=== PATIENT | female | born 1945 | race Caucasian/White ===

== ENCOUNTER 2023-10-01 06:03 | Day surgery (SDC) | payer OTHER ==
[~2023-10-01] VITALS: Ht 157.5 cm; Wt 65.8 kg
[2023-10-01] VITALS (11 sets, daily range): BP systolic 120–155; BP diastolic 55–88; PULSE 56–75; RESP 14–17
[~2023-10-01 06:03] MED LIST: AMLO5TAB5 PO; CELE100C PO; GABA300C PO; PANT40TA54 PO; ROSU10TA22 PO
[2023-10-01] MEDS ORDERED: PROPOFOL 10 MG/ML 20ML VIAL IV ONE (08:08)
[2023-10-01] MEDS ORDERED: LIDOCAINE PF 100MG/5ML (2%) SYRINGE 5ML ONE (08:08)
== END 2023-10-01 09:30 | disposition home or self-care (01) ==
LOC: DAH 06:03 → ENDO 06:03
PROVIDERS: ATTEND Internal Medicine Gastroenterology
DX: R13.10 Dysphagia, unspecified (principal); K44.9 Diaphragmatic hernia without obstruction or gangrene; K29.50 Unspecified chronic gastritis without bleeding; K22.2 Esophageal obstruction; K31.89 Other diseases of stomach and duodenum; Q39.4 Esophageal web; R10.13 Epigastric pain; K59.00 Constipation, unspecified; M19.90 Unspecified osteoarthritis, unspecified site; E78.5 Hyperlipidemia, unspecified; Z79.899 Other long term (current) drug therapy; Z90.49 Acquired absence of other specified parts of digestive tract; Z90.710 Acquired absence of both cervix and uterus; Z90.11 Acquired absence of right breast and nipple
CPT/HCPCS: 43239; 43248; J2001; J2704; A4620; A4215 ×2; A4223; A7002; A4222; A4221; A4663; A4216; J7030; A4606; J3490

== ENCOUNTER → 2023-11-19 | Outpatient (CLI) | payer OTHER | END | disposition home or self-care (01) | LOC: RAH 10:43 | PROVIDERS: ATTEND Nurse Practitioner Adult Health | DX: M47.22 Other spondylosis with radiculopathy, cervical region (principal); M48.02 Spinal stenosis, cervical region | CPT/HCPCS: 72040 ==

== ENCOUNTER → 2023-12-10 | Outpatient (CLI) | payer OTHER | END | disposition home or self-care (01) | LOC: RAH 13:44 | PROVIDERS: ATTEND Nurse Practitioner Adult Health | DX: M50.323 Other cervical disc degeneration at C6-C7 level (principal); M47.9 Spondylosis, unspecified | CPT/HCPCS: 72141 ==

== ENCOUNTER → 2024-09-15 | Outpatient (CLI) | payer OTHER | END | disposition home or self-care (01) | LOC: LAB 09:38 | PROVIDERS: ATTEND Nurse Practitioner Adult Health | DX: S33.39XA Dislocation of other parts of lumbar spine and pelvis, initial encounter (principal); M47.812 Spondylosis without myelopathy or radiculopathy, cervical region; M47.817 Spondylosis without myelopathy or radiculopathy, lumbosacral region; M43.17 Spondylolisthesis, lumbosacral region; M41.86 Other forms of scoliosis, lumbar region; M48.02 Spinal stenosis, cervical region; R53.83 Other fatigue; E03.8 Other specified hypothyroidism; M06.9 Rheumatoid arthritis, unspecified; M25.50 Pain in unspecified joint; N39.0 Urinary tract infection, site not specified; M54.50 Low back pain, unspecified; E11.65 Type 2 diabetes mellitus with hyperglycemia; M53.3 Sacrococcygeal disorders, not elsewhere classified; M54.2 Cervicalgia; X58.XXXA Exposure to other specified factors, initial encounter; Y93.89 Activity, other specified; Y92.89 Other specified places as the place of occurrence of the external cause; Y99.8 Other external cause status | CPT/HCPCS: 36415; 72040; 72100; 72220; 80053; 81001; 83036; 84443; 85025; 87086 ==

== ENCOUNTER → 2024-09-18 | Outpatient (CLI) | payer OTHER | END | disposition home or self-care (01) | LOC: LAB 10:31 | PROVIDERS: ATTEND Nurse Practitioner Adult Health | DX: N39.0 Urinary tract infection, site not specified (principal); M06.9 Rheumatoid arthritis, unspecified | CPT/HCPCS: 36415; 86140; 86431 ==

== ENCOUNTER → 2024-10-01 | Outpatient (CLI) | payer OTHER ==
[2024-09-15 10:22] LABS: BASOPHILS # (AUTO) 0.09 K/uL (0.00-0.20); BASOPHILS % (AUTO) 1.5 % (0.0-5.0); EOSINOPHILS # (AUTO) 0.14 K/uL (0.00-0.70); EOSINOPHILS % (AUTO) 2.4 % (0.0-8.0); HEMATOCRIT 44.9 % (36-48); IMMATURE GRANULOCYTE ABSOLUTE 0.02 K/uL (0-1); LYMPHOCYTES # (AUTO) 1.9 K/uL (1.0-4.8); MEAN CORPUSCULAR HEMOGLOBIN 29.2 pg (27.0-33.0); MEAN CORPUSCULAR HGB CONC 33.2 g/dL (32.0-36.0); MONOCYTES # (AUTO) 0.5 K/uL (0.1-1.0); MONOCYTES % (AUTO) 9.3 % (3.0-13.0); NEUTROPHILS # (AUTO) 3.1 K/uL (1.8-7.7); NEUTROPHILS % (AUTO) 53.5 % (40.0-77.0); PLATELET COUNT (AUTO) 260 K/uL (130-400); RED CELL DISTRIBUTION WIDTH 13.2 % (11.0-15.5); WHITE BLOOD COUNT (AUTO) 5.8 K/uL (4.8-10.8)
[2024-09-15 10:28] LABS: APPEARANCE,URINE CLEAR (CLEAR); BILIRUBIN,URINE NEGATIVE (NEGATIVE); COLOR,URINE COLORLESS (YELLOW); GLUCOSE, URINE (UA) NEGATIVE (NEGATIVE); KETONES,URINE NEGATIVE (NEGATIVE); LEUKOCYTE ESTERASE ,URINE NEGATIVE Leu/uL (NEGATIVE); NITRATE,URINE NEGATIVE (NEGATIVE); OCCULT BLOOD,URINE NEGATIVE (NEGATIVE); PROTEIN,URINE NEGATIVE (NEGATIVE); UROBILINOGEN,URINE 0.2 mg/dL (0.2-1.0)
[2024-09-15 10:31] LABS: HEMOGLOBIN A1C 5.3 % (4.0-6.0)
[2024-09-15 10:43] LABS: RBC,URINE 0-1 /HPF (0-1); SQUAMOUS EPITHELIAL CELL,UR RARE /HPF (0-2)
[2024-09-15 10:44] LABS: ALBUMIN 3.9 g/dL (3.5-5.0); BILIRUBIN,TOTAL 1.1 mg/dL (0.2-1.0); CREATININE 0.8 mg/dL (0.5-1.0); THYROID STIMULATING HORMONE 0.3 uIU/mL (0.36-3.74); TOTAL PROTEIN, SERUM 7.6 g/dL (6.0-8.3)
--- NOTE | 2024-10-01 15:38 | HMCIMG ---
DEXA BONE DENSITY SURVEY REASON: Age-related osteoporosis without current pathological fracture COMPARISON: None TECHNIQUE: DEXA bone densitometry was performed in the lumbar spine and left hip. FINDINGS: Mean bone mass density in the spine is 1.108 g/sq cm, T score 0.6, this is within normal limits. Bone density may be accentuated by some scoliosis and degenerative change. The femoral neck T score is -3.3 corresponding with osteoporosis. IMPRESSION: 1. Osteoporosis indicating a high fracture risk.
== END | disposition home or self-care (01) ==
LOC: RAH 14:08
PROVIDERS: ATTEND Nurse Practitioner Adult Health
DX: M81.0 Age-related osteoporosis without current pathological fracture (principal)
CPT/HCPCS: 36415; 77080; 80053; 81001; 83036; 84443; 85025; 87086

== ENCOUNTER 2025-02-10 05:48 | Day surgery (SDC) | payer OTHER ==
[~2025-02-10] VITALS: Ht 157.5 cm; Wt 62.1 kg
[2025-02-10] VITALS (9 sets, daily range): BP systolic 109–149; BP diastolic 60–79; PULSE 60–70; RESP 14–17; TEMP 97–97.7
[~2025-02-10 05:48] MED LIST changes: +AMLO-257 PO; -AMLO5TAB5 PO; -CELE100C PO; +ESOM40CA66 PO; +LINA145C PO; -PANT40TA54 PO; -ROSU10TA22 PO; +TRAM50TA4 PO
[2025-02-10] MEDS ORDERED: 0.9%NACL 1000ML 1,000 ML IV ONE (05:58)
[2025-02-10] MEDS ORDERED: ROSU10TA72 PO (06:16)
[2025-02-10] MEDS ORDERED: ESOM40CA66 PO (06:16)
[2025-02-10] MEDS ORDERED: BETAMETH DIP (06:16)
[2025-02-10] MEDS ORDERED: FAMO40TA7 PO (06:16)
[2025-02-10] MEDS ORDERED: PRED5TAB PO (06:19)
[2025-02-10] MEDS ORDERED: BETAMETHASONE TP (06:19)
[2025-02-10] MEDS ORDERED: TRIAMCINOLONE ACETONIDE 40 MG/ML 1ML VIAL IM ONE (07:00)
[2025-02-10] MEDS ORDERED: proPOFol 10 MG/ML 20ML VIAL IV ONE ×2 (07:13→07:25)
[2025-02-10] MEDS ORDERED: LIDOCAINE PF 100MG/5ML (2%) SYRINGE 5ML ONE ×2 (07:15→07:32)
--- NOTE | 2025-02-10 08:46 | NUR ---
Full and complete discharge instructions given to Patient and Family both verbally and in writing. Explained GI procedure precautions and follow up. All questions answered. PIV removed with catheter tip intact. Home with Family W/C to POV.
== END 2025-02-10 08:35 | disposition home or self-care (01) ==
LOC: DAH 05:48
PROVIDERS: ATTEND Internal Medicine Gastroenterology
DX: R13.10 Dysphagia, unspecified (principal); K22.2 Esophageal obstruction; K31.89 Other diseases of stomach and duodenum; K29.70 Gastritis, unspecified, without bleeding; K51.911 Ulcerative colitis, unspecified with rectal bleeding; K44.9 Diaphragmatic hernia without obstruction or gangrene; I10 Essential (primary) hypertension; E78.5 Hyperlipidemia, unspecified; M19.90 Unspecified osteoarthritis, unspecified site; K21.9 Gastro-esophageal reflux disease without esophagitis; Z88.5 Allergy status to narcotic agent; Z88.8 Allergy status to other drugs, medicaments and biological substances; Z86.73 Personal history of transient ischemic attack (TIA), and cerebral infarction without residual deficits; Z85.3 Personal history of malignant neoplasm of breast; Z90.49 Acquired absence of other specified parts of digestive tract; Z90.710 Acquired absence of both cervix and uterus; Z90.12 Acquired absence of left breast and nipple; Z79.899 Other long term (current) drug therapy
CPT/HCPCS: 43249; 43236; 43239; J7030; J2003 ×2; J2704 ×2; J3301; C1726; A4620; A4215 ×2; A4223; A4657; A4222; A4221; A4663; A4606; J3490

== ENCOUNTER → 2025-02-15 | Outpatient (CLI) | payer OTHER ==
[~2025-02-15] MED LIST changes: +BETAMETHASONE TP; +FAMO40TA7 PO; -LINA145C PO; +PRED5TAB PO; +ROSU10TA72 PO; -TRAM50TA4 PO
--- NOTE | 2025-02-15 11:49 | HMCIMG ---
CHEST 2VWS HISTORY: Chest pain COMPARISON: None FINDINGS: Frontal and lateral projections of the chest were obtained. There are prominent interstitial markings with possible superimposed infiltrates. There is scoliosis. The heart is borderline enlarged. No evidence of aortic calcification is seen. Degenerative changes are seen of the thoracolumbar spine. IMPRESSION: 1. There are prominent interstitial markings.
== END | disposition home or self-care (01) ==
LOC: RAH 11:05
PROVIDERS: ATTEND Nurse Practitioner Adult Health
DX: J84.9 Interstitial pulmonary disease, unspecified (principal); M47.815 Spondylosis without myelopathy or radiculopathy, thoracolumbar region; M41.9 Scoliosis, unspecified; R07.9 Chest pain, unspecified
CPT/HCPCS: 71046

== ENCOUNTER → 2025-02-24 | Outpatient (CLI) | payer OTHER ==
--- NOTE | 2025-02-24 15:12 | HMCIMG ---
MR BRAIN WO CON HISTORY: TIA COMPARISON: 12/09/2023 TECHNIQUE: MRI of the brain was performed utilizing multiple pulse sequences in axial, coronal and sagittal planes. Patient was not given contrast through intravenous route. FINDINGS: The ventricles and extraventricular CSF spaces are dilated consistent with cerebral atrophy. Nonspecific white matter changes are seen. There is no midline shift, mass effect or herniation. No subacute hemorrhage is seen. No MR evidence of acute infarct is seen in the diffusion weighted images. Cerebellar tonsils are in normal position. No evidence of mucoperiosteal thickening is seen of the visualized paranasal sinuses. No MR evidence of a mass lesion is seen in this noncontrast study. There are mild bilateral mastoid effusion. IMPRESSION: 1. No MR evidence of acute infarct is seen in the diffusion weighted images. Atrophy with white matter changes.
== END | disposition home or self-care (01) ==
LOC: RAH 13:44
PROVIDERS: ATTEND Nurse Practitioner Adult Health
DX: G31.89 Other specified degenerative diseases of nervous system (principal); R90.82 White matter disease, unspecified; H74.8X3 Other specified disorders of middle ear and mastoid, bilateral; G45.9 Transient cerebral ischemic attack, unspecified
CPT/HCPCS: 70551

== ENCOUNTER 2025-03-08 11:24 | Emergency (ER) | payer OTHER ==
[~2025-03-08] VITALS: Ht 157.5 cm; Wt 63.0 kg
--- NOTE | 2025-03-08 11:42 | ERN ---
ED Note History of Present Illness Stated Complaint: RIGHT HAND INJURY Chief Complaint: Hand Problem/Injury Time Seen by MD: 11:39 Dictation: PATIENT IS AN 79-YEAR-OLD FEMALE HERE WITH RIGHT HAND PAIN AND ECCHYMOSIS. ONSET WAS YESTERDAY AFTER SHE ACCIDENTALLY HIT IT AGAINST THE DOOR. NO BLOOD THINNERS TOOK A LEAVE WITHOUT ANY RELIEF OF PAIN. DECREASED RANGE OF MOTION TO 1ST AND 2ND FINGER SECONDARY TO PAIN IN THE METACARPALS. Allergies: Coded Allergies: hydromorphone (Unverified Allergy, Unknown, 09/28/23) meperidine (Unverified Allergy, Unknown, 09/28/23) Home Meds Active Scripts Ibuprofen (Ibuprofen 800 mg Tab) 800 Mg Tab, 800 MG PO Q8H PRN for fever or pain, #30 TAB 0 Refills Prov:COURT [employer]K [employer]KER 03/08/25 Reported Medications Prednisone (Prednisone) 5 Mg Tablet, 4 TAB PO DAILY for 30 Days, #30 TAB 0 Re fills 02/10/25 [Betamethasone ] No Conflict Check, 0.05 APPL TP BID 02/10/25 Rosuvastatin Calcium (Rosuvastatin Calcium) 10 Mg Tablet, 1 TAB PO AM for 30 Days, #30 TAB 0 Refills 02/10/25 Famotidine (Famotidine) 40 Mg Tablet, 1 TAB PO DAILY for 30 Days, #30 TAB 0 Refills 02/10/25 Esomeprazole Magnesium (Esomeprazole Magnesium) 40 Mg Capsule.dr, 1 CAP PO DAILY for 30 Days, #30 CAP 0 Refills 02/10/25 Gabapentin (Neurontin) 300 Mg Capsule, 1 CAP PO TID for 30 Days, #90 CAP 0 Refills 12/06/24 Amlodipine Besylate (Amlodipine Besylate) 5 Mg Tablet, 1 TAB PO DAILY for 30 Days, #30 TAB 0 Refills 12/06/24 Past Medical History Past Medical History: Cancer, Hypertension, TIA 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 Surgical History: Appendectomy, Hysterectomy, Cholecystectomy Surgical History Other: BIALTERAL BREAST Family History: Negative Social History: Negative History: Not Applicable RN Note Reviewed/Agreed w/PFSH: Yes Review of System Dictation CONSTITUTIONAL: NEGATIVE EXCEPT FOR HPI HEAD/FACE: NEGATIVE EXCEPT FOR HPI EENT: NEGATIVE EXCEPT FOR HPI RESPIRATORY: NEGATIVE EXCEPT FOR HPI GASTROINTESTINAL/ABDOMINAL: NEGATIVE EXCEPT FOR HPI GENITOURINARY: NEGATIVE EXCEPT FOR HPI MUSCULOSKELETAL: NEGATIVE EXCEPT FOR HPI RIGHT HAND PAIN INTEGUMENTARY: NEGATIVE EXCEPT FOR HPI NEUROLOGICAL/PSYCH: NEGATIVE EXCEPT FOR HPI HEMATOLOGIC/LYMPHATIC: NEGATIVE EXCEPT FOR HPI ALL SYSTEMS NEGATIVE, EXCEPT NOTED ABOVE. 13 POINT REVIEW OF SYSTEMS ASSESSED AND ALL NEGATIVE EXCEPT FOR ABOVE. Initial Vital Sign VS Vital Signs Date Time Temp Pulse Resp B/P (MAP) Pulse Ox O2 Delivery O2 Flow Rate FiO2 03/08/25 11:36 97.9 89 16 140/82 99 Room Air 0 03/08/25 13:24 21 Physical Exam Dictation VITAL SIGNS REVIEWED GENERAL APPEARANCE: ALERT, ORIENTED X 3, MODERATE ACUTE DISTRESS, WELL DEVELOPED, NOURISHED. HEAD AND FACE: NON-TRAUMATIC. EYES: PERRL, PINK CONJUNCTIVAS, EYELID NO TRAUMA, ANTERIOR CHAMBER WITH ARCUS SENILIS. EARS: PINNAS INTACT AND NO SIGNS OF TRAUMA OR ERYTHEMA EAR CANALS CLEAR AND NO DISCHARGE TM NO ERYTHEMA NOSE: NO DISCHARGE, NO BLEEDING. OROPHARYNX: MOUTH NORMAL, TONGUE PINK, PHARYNX CLEAR,NO ERYTHEMA, TONSILS NO EXUDATES, NO ABSCESSES NOTED, MUCOUS MEMBRANE MOIST NECK: SUPPLE, NON-TENDER, NO THYROMEGALY, NO MASSES, NO JVD, NO BRUITS BREAST:DEFERRED CHEST:NO TENDERNESS, NO CREPITUS, NO PARADOXICAL MOVEMENT, NO RETRACTIONS LUNGS:CLEAR, WELL-VENTILATED, SYMMETRIC, NO RALES, NO WHEEZING, NO RHONCHI, NO STRIDOR, GOOD BREATH SOUNDS BILATERALLY HEART: REGULAR RATE, REGULAR RHYTHM, NO MURMUR, NO GALLOPS VASCULAR: NO PERIPHERAL EDEMA, ABDOMEN: SOFT, POSITIVE BOWEL SOUNDS, NONDISTENDED, NO GUARDING, NONTENDER, NO REBOUND, NO MASSES NO HEPATOMEGALY, NO SPLENOMEGALY, NO RILEY'S S IGN, NO HERNIAS. RECTAL: DEFERRED GENITAL: DEFERRED NEUROLOGICAL: NORMAL SPEECH, MOTOR FUNCTION INTACT, SENSORY FUNCTION INTACT MUSCULOSKELETAL: NECK NONTENDER, FULL RANGE OF MOTION, BACK NONTENDER, FULL RANGE OF MOTION, EXTREMITIES: RIGHT 1ST AND 2ND METACARPAL JOINT TENDERNESS WITH A ECCHYMOSIS NOTED. SKIN: COLOR PINK, DRY, NO TURGOR, NO RASH, NO LACERATIONS, NO ABRASIONS, NO CONTUSIONS. LYMPHATIC: DEFERRED Results (Laboratory/Radiology) Laboratory/Radiology HAND 3+VWS RT HISTORY: Pain COMPARISON: None TECHNIQUE: 3 images of the right hand were obtained. FINDINGS: Bony osteopenia is seen. Degenerative changes are noted with joint space narrowing worse at the first carpometacarpal joint with nondisplaced fracture not completely excluded. Interphalangeal joint space narrowing and radiocarpal joint space narrowing are seen. There is no acute displaced fracture or dislocation. Degenerative changes are seen. IMPRESSION: 1. Findings as described above. SHOULDER COMP 2+VWS RT HISTORY: Status post fall COMPARISON: None TECHNIQUE: 2 images of the right shoulder were obtained. FINDINGS: There is no acute displaced fracture or dislocation. Degenerative changes are seen. IMPRESSION: 1. Findings as described above. Labs Reviewed?: Yes ED Course ED Course Orders Procedure Category Date Status Time Acetaminophen With PHA 03/08/25 Complete Codeine (Tylenol-Code 12:00 Hand 3+Vws Rt RAD 03/08/25 Resulted 11:39 Volar Splint ANY.ER 03/08/25 Complete 13:31 Shoulder Comp 2+Vws Rt RAD 03/08/25 Resulted 14:10 Current Medications Medications (Trade) Dose Ordered Sig/Loren Route PRN Reason Start Time Stop Time Status Last Admin Dose Admin Acetaminophen/ Codeine Phosphate (TYLenol-coDEINE TAB) 2 tab ONCE ONCE PO 03/08/25 12:00 03/08/25 12:01 DC 03/08/25 12:00 Vital Signs Date Time Temp Pulse Resp B/P (MAP) Pulse Ox O2 Delivery O2 Flow Rate FiO2 03/08/25 14:28 97.9 80 18 131/79 99 Room Air* 0 21 03/08/25 13:24 97.9 85 18 135/83 99 Room Air* 0 21 03/08/25 11:36 97.9 89 16 140/82 99 Room Air 0 1345/volar splint placed to right hand by tech, distal neurovascular CMS intact. Patient had right shoulder x-rayed after she complained of pain while ranging it during splint placement. X-ray is negative we will discharged home with right shoulder contusion Medical Decision Making MDM Medical decision-making based on x-ray of right hand and pain management. Patient has probable right 1st metacarpal joint fracture Splint was placed with neurovascular CMS intact Patient referred to DX & DISP Disposition: Discharge Departure Impression: Primary Impression: Fracture of metacarpal base, first, right hand, closed Additional Impressions: Fall, Contusion of right shoulder, initial encounter Condition: Stable Scripts Ibuprofen (Ibuprofen 800 mg Tab) 800 Mg Tab 800 MG PO Q8H PRN for fever or pain, #30 TAB 0 Refills Prov: COURT WILL NP 03/08/25 Additional Instructions: Follow-up with primary care provider in 1 to 2 days. Take medications as directed here in the emergency room. Okay to continue home medications unless otherwise discussed during your visit in the emergency room today. Return to your nearest emergency room if symptoms worsen or if there is no improvement. Call 911 if you need immediate assistance. Take Tylenol or Motrin [id number] as needed and if no contraindications are present. Increase oral hydration. A wound culture or urine culture was ordered here in the emergency room department please follow-up with primary care provider and advise them to get repeat ports from our facility. If you had any Sanya wrap/splints that were applied here, please do not remove them until you see your primary care or specialty. Splint/no weight-bearing to right hand until cleared by Orthopedics, call for an appointment today. Cool compresses to pain three to 4 times a day. Referrals: CINDY PHAM NP (PCP) TAMIE GOMEZ MD Time of Disposition: 13:49 I have reviewed the case, and I agree with, Diagnosis and Plan I performed the substantive portion of the visit. I have reviewed and personally made and approve the management plan that is documented in the notes by myself or the EVY. I acknowledge full responsibility for the patient's management plan. COURT WILL NP Mar 08, 2025 11:42 ERICK BEDOYA MD Mar 08, 2025 18:30
[2025-03-08] MEDS: acetaMINOPHEN WITH coDEINE 1 TAB TAB PO ONE (12:00)
--- NOTE | 2025-03-08 12:40 | HMCIMG ---
HAND 3+VWS RT HISTORY: Pain COMPARISON: None TECHNIQUE: 3 images of the right hand were obtained. FINDINGS: Bony osteopenia is seen. Degenerative changes are noted with joint space narrowing worse at the first carpometacarpal joint with nondisplaced fracture not completely excluded. Interphalangeal joint space narrowing and radiocarpal joint space narrowing are seen. There is no acute displaced fracture or dislocation. Degenerative changes are seen. IMPRESSION: 1. Findings as described above.
[2025-03-08] MEDS ORDERED: IBUP-2077 PO (13:51)
[2025-03-08 14:28] VITALS: BP 131/79; PULSE 80; RESP 18; TEMP 97.9; O2SAT 99
--- NOTE | 2025-03-08 14:41 | HMCIMG ---
SHOULDER COMP 2+VWS RT HISTORY: Status post fall COMPARISON: None TECHNIQUE: 2 images of the right shoulder were obtained. FINDINGS: There is no acute displaced fracture or dislocation. Degenerative changes are seen. IMPRESSION: 1. Findings as described above.
== END 2025-03-08 14:51 | disposition home or self-care (01) ==
LOC: EDH 11:24
DX: S62.231A Other displaced fracture of base of first metacarpal bone, right hand, initial encounter for closed fracture (principal); S40.011A Contusion of right shoulder, initial encounter; I10 Essential (primary) hypertension; Z79.52 Long term (current) use of systemic steroids; Z79.899 Other long term (current) drug therapy; Z85.3 Personal history of malignant neoplasm of breast; Z86.73 Personal history of transient ischemic attack (TIA), and cerebral infarction without residual deficits; Z88.5 Allergy status to narcotic agent; Z90.49 Acquired absence of other specified parts of digestive tract; Z90.710 Acquired absence of both cervix and uterus; W22.8XXA Striking against or struck by other objects, initial encounter; Y93.89 Activity, other specified; Y92.89 Other specified places as the place of occurrence of the external cause; Y99.8 Other external cause status
CPT/HCPCS: 29105; 29125; 73030; 73130; 99283

== ENCOUNTER → 2025-07-15 | Outpatient (CLI) | payer OTHER ==
[~2025-07-15] MED LIST changes: +IBUP-2077 PO
--- NOTE | 2025-07-16 00:45 | HMCIMG ---
EXAM: MR Cervical Spine Without Intravenous Contrast. CLINICAL HISTORY: Pain. TECHNIQUE: Magnetic resonance images of the cervical spine in multiple planes. CONTRAST: None. COMPARISON: MRI of the cervical spine. 12/10/2023. FINDINGS: The imaged posterior fossa is unremarkable. The craniocervical junction is intact. No acute fracture. Normal lordotic curvature. Normal vertebral body heights. Moderate reduction in C6-C7 intervertebral disc heights with degenerative endplate changes. Mild reduction in C2-C3 and C4-C5 intervertebral disc heights. Normal marrow signal of the vertebrae. Multilevel anterior osteophytes. The cervical cord is in an anatomic location. No abnormal signal involves the cord. No extra-axial masses. Bulky nodular thyroid gland. Left mastoiditis. Level by level, disease is present as follows: C1-C2: No osteoarthritis. C2-C3: Mild disc bulge of 2 mm indenting the anterior thecal sac. No neural foraminal, lateral recess, or spinal canal stenosis. C3-C4: Moderate asymmetric bulge of 2.5 mm with a larger left-sided component causing moderate narrowing of the left lateral recess and neural foramina abutting the exiting C4 nerve root. No significant spinal canal compromise. C4-C5: Mild disc bulge of 2 mm indenting the anterior thecal sac. No neural foraminal, lateral recess, or spinal canal stenosis. C5-C6: Mild disc bulge of 2 mm indenting the anterior thecal sac. No neural foraminal, lateral recess, or spinal canal stenosis. C6-C7: Moderate disc bulge of 3 mm indenting the anterior thecal sac. Moderate narrowing of both the lateral recesses and neuroforamina abutting bilateral exiting C7 nerve roots. Mild canal narrowing. C7-T1: No disc bulge or herniation. No neural foraminal, lateral recess, or spinal canal stenosis. IMPRESSION: 1. No acute fracture or subluxation. Multilevel anterior osteophytes. Moderate reduction in C6-C7 intervertebral disc heights with degenerative endplate changes. Mild reduction in C2-C3 and C4-C5 intervertebral disc heights. 2. Moderate cervical spondylosis is most pronounced at C6-C7 with a moderate disc bulge of 3 mm indenting the anterior thecal sac. Moderate narrowing of both the lateral recesses and neuroforamina abutting bilateral exiting C7 nerve roots. Mild canal narrowing. 3. Moderate narrowing of the left lateral recess and neural foramina at the C3-C4 level abutting the exiting nerve root. 4. Bulky nodular thyroid gland. Further evaluation with ultrasound is recommended. 5. No gross interval worsening in the degenerative changes as compared to prior MRI. /[place]
--- NOTE | 2025-07-16 00:48 | HMCIMG ---
EXAM: MR Thoracic Spine Without Intravenous Contrast. CLINICAL HISTORY: Pain. TECHNIQUE: Magnetic resonance images of the thoracic spine in multiple planes. CONTRAST: None. COMPARISON: None. FINDINGS: The cervicothoracic and thoracolumbar junction is intact. No acute fracture. Normal thoracic curvature. Normal vertebral body heights. Mild generalized reduction in the intervertebral disc heights. Normal marrow signal of the vertebrae. Multilevel anterior osteophytes. The thoracic cord is in an anatomic location without abnormal signals. No abnormal extra-axial masses are present. The prevertebral and paravertebral soft tissues are within normal limits. Left renal cysts are the largest, measuring 4 cm. [id number]-[id number] findings are as follows: C7-T1: Mild disc bulge of 2 mm indenting the anterior thecal sac. No neural foraminal, lateral recess, or spinal canal stenosis. T1-T2: Mild disc bulge of 2 mm indenting the anterior thecal sac. No neural foraminal, lateral recess, or spinal canal stenosis. T2-T3: Mild disc bulge of 2 mm indenting the anterior thecal sac. No neural foraminal, lateral recess, or spinal canal stenosis. T3-T4: Mild disc bulge of 2 mm indenting the anterior thecal sac. No neural foraminal, lateral recess, or spinal canal stenosis. T4-T5: Mild disc bulge of 2 mm indenting the anterior thecal sac. No neural foraminal, lateral recess, or spinal canal stenosis. T5-T6: Mild disc bulge of 2 mm indenting the anterior thecal sac. No neural foraminal, lateral recess, or spinal canal stenosis. T6-T7: Mild disc bulge of 2 mm indenting the anterior thecal sac. No neural foraminal, lateral recess, or spinal canal stenosis. T7-T8: Mild disc bulge of 2 mm indenting the anterior thecal sac. No neural foraminal, lateral recess, or spinal canal stenosis. T8-T9: Mild disc bulge of 2 mm indenting the anterior thecal sac. No neural foraminal, lateral recess, or spinal canal stenosis. T9-T10: Mild disc bulge of 2 mm indenting the anterior thecal sac. No neural foraminal, lateral recess, or spinal canal stenosis. T10-T11: Mild disc bulge of 2 mm indenting the anterior thecal sac. No neural foraminal, lateral recess, or spinal canal stenosis. T11-T12: Mild disc bulge of 2 mm indenting the anterior thecal sac. No neural foraminal, lateral recess, or spinal canal stenosis. T12-L1: Mild disc bulge of 2 mm indenting the anterior thecal sac. Mild narrowing of both the lateral recesses and neuroforamina. Mild canal narrowing. IMPRESSION: 1. Normal marrow signal intensity. No acute fracture or subluxation. Multilevel anterior osteophytes. 2. Mild /moderate generalized thoracic spondylosis most pronounced at the T12-L1 level with a mild disc bulge of 2 mm indenting the anterior thecal sac. Mild narrowing of both the lateral recesses and neuroforamina. Mild canal narrowing. Mild disc bulges at rest of the levels in the thoracic spine without narrowing of the lateral recesses, neural foramina, or spinal canal. 3. Left renal cysts are the largest, measuring 4 cm. /[place]
== END | disposition home or self-care (01) ==
LOC: RAH 12:12
PROVIDERS: ATTEND Nurse Practitioner Adult Health
DX: M47.813 Spondylosis without myelopathy or radiculopathy, cervicothoracic region (principal); M47.817 Spondylosis without myelopathy or radiculopathy, lumbosacral region; M50.33 Other cervical disc degeneration, cervicothoracic region; M43.8X2 Other specified deforming dorsopathies, cervical region; M48.03 Spinal stenosis, cervicothoracic region; M48.061 Spinal stenosis, lumbar region without neurogenic claudication; M54.6 Pain in thoracic spine; M25.78 Osteophyte, vertebrae; N28.1 Cyst of kidney, acquired; E04.2 Nontoxic multinodular goiter; H70.92 Unspecified mastoiditis, left ear
CPT/HCPCS: 72141; 72146

== ENCOUNTER → 2025-08-04 | Outpatient (CLI) | payer OTHER ==
--- NOTE | 2025-08-05 00:05 | HMCIMG ---
EXAMINATION: ULTRASOUND OF THE THYROID. CLINICAL HISTORY: Thyroid nodules. COMPARISON: None. TECHNIQUE: Transverse and longitudinal images were obtained through both lobes and the isthmus of the thyroid. FINDINGS: The thyroid gland is normal in caliber with homogenous tissue echotexture. The right thyroid lobe measures 4.5 x 3.0 x 2.1 cm and the left thyroid lobe measures 4.3 x 2.0 x 1.6 cm in the craniocaudal, AP, and transverse dimensions respectively. The isthmus measures 0.3 cm in AP dimension. Right lobe: There is a hypoechoic solid nodule that measures 1.2 x 0.7 x 1.1 cm at the upper pole (TR4). There is a hypoechoic solid nodule that measures 1.1 x 1.1 x 1.1 cm at the upper pole (TR4). There is a hypoechoic solid nodule that measures 1.8 x 1.8 x 1.4 cm at the lower pole (TR5). There is a hypoechoic solid nodule that measures 1.8 x 1.1 cm at the mid pole (TR4). Left lobe: There is a hypoechoic solid nodule that measures 0.6 x 0.4 cm at the upper pole (TR4). There is a hypoechoic solid nodule that measures 1.6 x 1.1 x 1.1 cm at the mid pole (TR4). There is a hypoechoic solid nodule that measures 0.5 x 0.6 x 0.6 cm at the mid pole (TR4). There is a hypoechoic solid nodule that measures 0.8 x 0.4 cm at the lower pole (TR4). There is a hypoechoic solid nodule that measures 0.9 x 0.7 x 0.6 cm at the lower pole (TR5). No significantly enlarged lymph nodes. IMPRESSION: Nodules in both lobes of the thyroid. TI-RADS follow up recommendations: TR1: no FNA required TR2: no FNA required TR3: more than or equal to 1.5 cm follow up, more than or equal to 2.5 cm FNA follow up: 1, 3 and 5 years TR4: more than or equal to 1.0 cm follow up, more than or equal to 1.5 cm FNA follow up: 1, 2, 3 and 5 years TR5: more than or equal to 0.5 cm follow up, more than or equal to 1.0 cm FNA annual follow up for up to 5 years /[place]
== END | disposition home or self-care (01) ==
LOC: RAH 14:06
PROVIDERS: ATTEND Nurse Practitioner Adult Health
DX: E04.2 Nontoxic multinodular goiter (principal)
CPT/HCPCS: 76536